=== PATIENT | male | born 1945 | race American Indian/Alaskan Native ===

== ENCOUNTER 2018-02-01 12:52 | Emergency (ER) | payer MEDICARE, OTHER ==
[2018-02-01] MEDS ORDERED: methylPREDNISolone Sodium Succinate 125 MG/2 ML SDV IM ONE (14:04)
[2018-02-01] MEDS ORDERED: Albuterol/Ipratropium 3.0-0.5 MG/3 ML Neb Soln NEB ONE (14:04)
[2018-02-01 14:42] LABS: ANION GAP 12.1
--- NOTE | 2018-02-01 18:54 | EDM.PDOC ---
Scribed by Yana Castanon 02/01/18 [id number] for Susie Goldsmith NP ED HPI GENERAL MEDICAL PROBLEM - General Chief Complaint: Respiratory Problem Stated Complaint: HARD TIEME BREATHING [phone] Time Seen by Provider: 02/01/18 13:56 Source of Information: Reports: Patient, Family, RN, RN Notes Reviewed History Limitations: Reports: No Limitations - History of Present Illness INITIAL COMMENTS - FREE TEXT/NARRATIVE: Patient presents to ER with complaint of shortness of breath beginning 3 weeks ago--getting worse. History of COPD.He is not eating as well because food gets caught in throat. He has had chills and productive cough that is yellow. No fever, nausea, vomiting, diarrhea or chest pain. Onset: Gradual Duration: Getting Worse Location: Reports: Chest Quality: Reports: Ache Severity: Moderate Improves with: Reports: None Worsens with: Reports: None Associated Symptoms: Reports: No Other Symptoms - Related Data Allergies Allergy/AdvReac Type Severity Reaction Status Date / Time No Known Allergies Allergy Verified 02/01/18 13:00 Home Meds: Home Meds Albuterol Sulfate 2.5 mg IH Q4HR PRN 02/01/18 [History] Albuterol Sulfate [Proair Hfa] 8.5 gm IH Q4HR PRN 02/01/18 [History] Aspirin 325 mg PO DAILY 02/01/18 [History] Ferrous Gluconate 324 mg PO DAILY 02/01/18 [History] Finasteride [Proscar] 5 mg PO DAILY 02/01/18 [History] Lisinopril 40 mg PO DAILY 02/01/18 [History] Metoprolol Succinate 50 mg PO DAILY 02/01/18 [History] Mometasone/Formoterol [Dulera 100 Mcg/5 Mcg Inhaler] 8.8 gm IH BID 02/01/18 [ History] Simvastatin [Zocor] 20 mg PO BEDTIME 02/01/18 [History] Tamsulosin HCl 0.4 mg PO DAILY 02/01/18 [History] Tiotropium [Spiriva] 18 mcg INH DAILY 02/01/18 [History] Past Medical History Cardiovascular History: Reports: Arrhythmia, High Cholesterol, Hypertension Respiratory History: Reports: COPD, Other (See Below) (empphysema) Genitourinary History: Reports: Prostate Disorder Social & Family History - Tobacco Use Smoking Status *Q: Current Every Day Smoker Years of Tobacco use: 53 Packs/Tins Daily: 0.1 Second Hand Smoke Exposure: Yes - Recreational Drug Use Recreational Drug Use: No ED ROS GENERAL - Review of Systems Review Of Systems: ROS reveals no pertinent complaints other than HPI. ED EXAM, GENERAL - Physical Exam Exam: See Below Exam Limited By: No Limitations General Appearance: Thin Eye Exam: Bilateral Eye: Other (cataracts) Ears: Normal External Exam, Normal Canal, Hearing Grossly Normal, Normal TMs Nose: Normal Inspection, Normal Mucosa, No Blood Throat/Mouth: Normal Inspection, Normal Lips, Normal Teeth, Normal Gums, Normal Oropharynx, Normal Voice, No Airway Compromise Head: Atraumatic, Normocephalic Neck: Normal Inspection, Supple, Non-Tender, Full Range of Motion Respiratory/Chest: Other (decreased lung sounds) Cardiovascular: Normal Peripheral Pulses, Regular Rate, Rhythm, No Edema, No Gallop, No JVD, No Murmur, No Rub GI/Abdominal: Normal Bowel Sounds, Soft, Non-Tender, No Organomegaly, No Distention, No Abnormal Bruit, No Mass (Male) Exam: Deferred Rectal (Males) Exam: Deferred Back Exam: Normal Inspection, Full Range of Motion, NT Extremities: Normal Inspection, Normal Range of Motion, Non-Tender, Normal Capillary Refill, No Pedal Edema Neurological: Alert, Oriented, CN II-XII Intact, Normal Cognition, Normal Gait, Normal Reflexes, No Motor/Sensory Deficits Psychiatric: Normal Affect, Normal Mood Skin Exam: Warm, Dry, Intact, Normal Color, No Rash Lymphatic: No Adenopathy Course - Vital Signs Last Recorded V/S: Last Vital Signs Temp 96.7 F 02/01/18 12:54 Pulse 87 02/01/18 12:54 Resp 20 02/01/18 12:54 BP 113/59 L 02/01/18 12:54 Pulse Ox 93 L 02/01/18 12:54 - Orders/Labs/Meds Orders: Active Orders 24 hr Category Date Time Status RT Aerosol Therapy [RC] ASDIRECTED Care 02/01/18 14:04 Active Labs: Laboratory Tests 02/01/18 02/01/18 Range/Units 14:17 14:17 WBC 8.7 (5.0-10.0) 10^3/uL RBC 4.23 L (4.6-6.2) 10^6/uL Hgb 10.5 L (14.0-18.0) g/dL Hct 36.2 L (40.0-54.0) % MCV 85.6 (80-100) fL MCH 24.8 L (27.0-34.0) pg MCHC 29.0 L (33.0-35.0) g/dL Plt Count 358 (150-450) 10^3/uL Neut % (Auto) 68.5 (42.2-75.2) % Lymph % (Auto) 17.7 L (20.5-50.1) % [place] % (Auto) 12.8 H (2-8) % Eos % (Auto) 0.9 L (1.0-3.0) % Baso % (Auto) 0.1 (0.0-1.0) % Sodium 139 (135-145) mmol/L Potassium 5.1 H (3.6-5.0) mmol/L Chloride 104 (101-111) mmol/L Carbon Dioxide 28.0 (21.0-31.0) mmol/L Anion Gap 12.1 BUN 52 H (7-18) mg/dL Creatinine 1.5 H (0.6-1.3) mg/dL Est Cr Clr Drug Dosing 37.98 mL/min Estimated GFR (MDRD) 46 BUN/Creatinine Ratio 34.66 Glucose 120 H (74-105) mg/dL Calcium 8.4 (8.4-10.2) mg/dl Total Bilirubin 0.4 (0.2-1.0) mg/dL AST 19 (10-42) IU/L ALT 10 (10-60) IU/L Alkaline Phosphatase 58 (42-121) IU/L B-Natriuretic Peptide 133 H (0-100) pg/ml Total Protein 8.5 H (6.7-8.2) g/dl Albumin 2.6 L (3.2-5.5) g/dl Globulin 5.9 Albumin/Globulin Ratio 0.44 Meds: Medications Discontinued Medications Generic Name Dose Route Start Last Admin Trade Name Freq PRN Reason Stop Dose Admin Albuterol/Ipratropium 3 ml 02/01/18 14:04 02/01/18 14:09 Duoneb 3.0-0.5 Mg/3 Ml NEB 02/01/18 14:05 3 ml ONETIME ONE Administration Methylprednisolone Sodium Succinate 125 mg 02/01/18 14:04 02/01/18 14:09 Solu-Medrol IM 02/01/18 14:05 125 mg ONETIME ONE Administration - Radiology Interpretation Free Text/Narrative:: Chest pain: IMPRESSION: 1. Well inflated lungs consistent with COPD. 2. Right lower lobe and anterior segment right upper lobe infiltrates. Thank you for allowing us to participate in the care of your patient. Dictated and Authenticated by: Moreno Patel MD 02/01/2018 3:11 PM Central Time ([place] & [place]) See rad report Departure - Departure Time of Disposition: 14:49 Disposition: Home, Self-Care 01 Condition: Fair Clinical Impression: COPD exacerbation - Discharge Information *PRESCRIPTION DRUG MONITORING PROGRAM REVIEWED*: No *COPY OF PRESCRIPTION DRUG MONITORING REPORT IN PATIENT [id number]: No Instructions: Chronic Obstructive Pulmonary Disease Exacerbation, [id number] , Shortness of Breath, Adult, [id number], Chronic Obstructive Pulmonary Disease, [id number], Community-Acquired Pneumonia, Adult, [id number] Forms: ED Department Discharge Additional Instructions: RX: Azithromycin, Prednisone Continue using your inhalers and nebulizers Follow up with your primary care facility - My Orders Last 24 Hours: My Active Orders 02/01/18 14:04 RT Aerosol Therapy [RC] ASDIRECTED - Assessment/Plan Last 24 Hours: My Active Orders 02/01/18 14:04 RT Aerosol Therapy [RC] ASDIRECTED I have read and agree with the documentation that has been completed regarding this visit. By signing this record, I attest that the documentation was completed in my physical presence and is an accurate record of the encounter.
== END 2018-02-01 15:21 | disposition home or self-care (01) ==
LOC: DL.ED 12:52
DX: J44.1 Chronic obstructive pulmonary disease with (acute) exacerbation (principal); I10 Essential (primary) hypertension; F17.210 Nicotine dependence, cigarettes, uncomplicated; Z79.899 Other long term (current) drug therapy
CPT/HCPCS: 36415; 71046; 80053; 83880; 85025; 96372; 99284; J2930; 99283; J7620-GY